=== PATIENT | male | born 1950 | race Caucasian/White ===

== ENCOUNTER → 2016-12-12 | Outpatient (REF) | payer OTHER | LOC: M SFHCPLAZ 12:51 | PROVIDERS: ATTEND Family Medicine | DX: E55.9 Vitamin D deficiency, unspecified (principal) ==

== ENCOUNTER → 2017-05-18 | Outpatient (CLI) | payer OTHER ==
[2017-05-18 13:47] LABS: ALBUMIN 3.8 GM/DL (3.2-5.2); ALBUMIN/GLOBULIN RATIO 1.27 (1.00-1.93); ALKALINE PHOSPHATASE 57 U/L (45-117); ALT/SGPT 23 U/L (12-78); ANION GAP 6 MEQ/L (8-16); AST/SGOT 15 U/L (15-37); BILIRUBIN,TOTAL 0.7 MG/DL (0.2-1.0); BLOOD UREA NITROGEN 13 MG/DL (7-18); CARBON DIOXIDE LEVEL 29 MEQ/L (21-32); CHLORIDE LEVEL 102 MEQ/L (98-107); CHOLESTEROL LEVEL 175 MG/DL (<200); CREATININE FOR GFR 0.95 MG/DL (0.70-1.30); GLOMERULAR FILTRATION RATE > 60.0 (>49); GLUCOSE, FASTING 94 MG/DL (80-110); POTASSIUM SERUM 4.4 MEQ/L (3.5-5.1); SODIUM LEVEL 137 MEQ/L (136-145); TOTAL PROTEIN 6.8 GM/DL (6.4-8.2); TRIGLYCERIDES LEVEL 156 MG/DL (<150)
== END ==
LOC: M LAB 11:37
PROVIDERS: ATTEND Family Medicine
DX: E55.9 Vitamin D deficiency, unspecified (principal); E78.4 Other hyperlipidemia; F32.89 Other specified depressive episodes

== ENCOUNTER → 2017-06-03 | Outpatient (CLI) | payer MEDICARE, MEDICAID ==
--- NOTE | 2017-06-03 15:29 | REP ---
CAROTID ULTRASOUND: Real-time sonographic evaluation and duplex Doppler interrogation of the extracranial carotid vasculature performed. There is moderate partially calcified plaque seen in both carotid bulbs extending into the internal carotid arteries bilaterally. There is elevated peak systolic velocity in the right internal carotid artery. The findings are compatible with stenosis of the right internal carotid artery, 60 to 79%. Peak systolic velocity of the left internal carotid artery is upper limits of normal with luminal narrowing in the range less than 50%. Please note that the plaques are very irregular and likely ulcerated on the right side. There is normal direction of flow in both vertebral arteries. RIGHT LEFT PSV ICA 145 cm/s 124 cm/s EDV ICA 21 cm/s 26 cm/s PSV CCA 123 cm/s 119 cm/s PSV ECA 124 cm/s 114 cm/s ICA/CCA ratio 1.2 1.0 IMPRESSION: Moderate partially calcified plaque in both carotid bulbs and internal carotid arteries. The plaques appear ulcerative on the right. There is stenosis of the right internal carotid artery 60 to 79%. Luminal narrowing left ICA, less than 50%. Signed by Rogelio Griffin MD 06/04/2017 01:25 P
== END ==
LOC: M RAD 11:47
PROVIDERS: ATTEND Family Medicine
DX: R09.89 Other specified symptoms and signs involving the circulatory and respiratory systems (principal)

== ENCOUNTER → 2017-07-15 | Outpatient (CLI) | payer MEDICARE, MEDICAID ==
[2017-07-15 12:34] LABS: ANION GAP 2 MEQ/L (8-16); BLOOD UREA NITROGEN 10 MG/DL (7-18); CARBON DIOXIDE LEVEL 35 MEQ/L (21-32); CHLORIDE LEVEL 102 MEQ/L (98-107); CREATININE FOR GFR 0.88 MG/DL (0.70-1.30); GLOMERULAR FILTRATION RATE > 60.0 (>49); GLUCOSE, FASTING 89 MG/DL (80-110); POTASSIUM SERUM 4.2 MEQ/L (3.5-5.1); SODIUM LEVEL 139 MEQ/L (136-145)
== END ==
LOC: M LAB 11:23
PROVIDERS: ATTEND Surgery Vascular Surgery
DX: I65.21 Occlusion and stenosis of right carotid artery (principal)

== ENCOUNTER → 2017-07-20 | Outpatient (CLI) | payer MEDICARE, OTHER, MEDICAID ==
[~2017-07-20] MED LIST: ISOVUE-370 76% 100ML VIAL (Q9967) As Ordered ONE
--- NOTE | 2017-07-21 06:27 | REP ---
CT ANGIO HEAD: HISTORY: Carotid stenosis. CONTRAST: Isovue 370, 100 mL. There is no aneurysm or arteriovenous malformation. Calcified atherosclerotic plaques are present in the vertical petrous and cavernous internal carotid arteries. These produce at least mild stenosis. Major intracranial vessels are patent. The vertebral arteries are equal in size. IMPRESSION: 1. There is no aneurysm or arteriovenous malformation. 2. Atherosclerotic disease as described above. Signed by Chaitanya Wilkins MD 07/21/2017 08:49 A
--- NOTE | 2017-07-21 06:31 | REP ---
CT ANGIO NECK: HISTORY: Carotid stenosis. CONTRAST: Isovue 370, 100 mL. A noncalcified atherosclerotic plaque is present at the origin of the right internal carotid artery. There is moderate stenosis of 40% of the right internal carotid artery at its origin. A calcified atherosclerotic plaque is present in the proximal right internal carotid artery 12 mm from its origin. There is moderate stenosis of 40% of the right internal carotid artery at this level. The origin of the right external carotid artery is normal. The distal left common carotid artery and origins of the left external and internal carotid arteries are normal. The vertebral arteries are equal in size and patent. The left vertebral artery arises from the aortic arch. Calcified atherosclerotic plaques are present at the origins of the left vertebral and left subclavian arteries. There is no significant stenosis. A calcified atherosclerotic plaque is present at the origin of the right subclavian artery. This produces at least mild stenosis. Scarring is present in the lung apices. Degenerative change is present in the cervical spine. IMPRESSION: 1. Moderate stenosis of 40% of the right internal carotid artery at its origin. There is moderate stenosis of 40% of the right internal carotid artery 12 mm from its origin. 2. Normal left carotid artery bifurcation. Signed by Chaitanay Wilkins MD 07/21/2017 08:49 A
== END ==
LOC: M RAD 17:53
PROVIDERS: ATTEND Surgery Vascular Surgery
DX: I65.21 Occlusion and stenosis of right carotid artery (principal)
CPT/HCPCS: 70496; 70498; Q9967

== ENCOUNTER 2017-07-23 10:45 | Outpatient (RCR) | payer MEDICAID, MEDICARE, OTHER | END 2017-07-25 | LOC: M PT 10:45 | PROVIDERS: ATTEND Family Medicine | DX: Z51.89 Encounter for other specified aftercare (principal); M54.5 Low back pain ==

== ENCOUNTER 2017-07-29 10:44 | Outpatient (RCR) | payer OTHER | END 2017-08-25 | LOC: M PT 10:44 | PROVIDERS: ATTEND Family Medicine | DX: Z51.89 Encounter for other specified aftercare (principal); M54.5 Low back pain ==

== ENCOUNTER 2018-01-24 11:25 | Emergency (ER) | payer MEDICARE, MEDICAID, OTHER | END 2018-01-24 13:53 | disposition home or self-care (01) | LOC: M ED 11:25 | DX: S20.219A Contusion of unspecified front wall of thorax, initial encounter (principal); W19.XXXA Unspecified fall, initial encounter; Y92.092 Bedroom in other non-institutional residence as the place of occurrence of the external cause; J45.909 Unspecified asthma, uncomplicated; E78.00 Pure hypercholesterolemia, unspecified; G47.52 REM sleep behavior disorder; Z79.899 Other long term (current) drug therapy; Z79.02 Long term (current) use of antithrombotics/antiplatelets; Z79.82 Long term (current) use of aspirin; Z88.0 Allergy status to penicillin; Z87.891 Personal history of nicotine dependence | CPT/HCPCS: 71101 ==

== ENCOUNTER → 2018-04-05 | Outpatient (CLI) | payer MEDICARE, MEDICAID | LOC: M RAD 11:40 | DX: I65.23 Occlusion and stenosis of bilateral carotid arteries (principal) | CPT/HCPCS: 93880 ==

== ENCOUNTER → 2018-05-06 | Outpatient (CLI) | payer MEDICARE, MEDICAID | LOC: M RAD 07:57 | DX: Z13.6 Encounter for screening for cardiovascular disorders (principal); I70.0 Atherosclerosis of aorta | CPT/HCPCS: 76775 ==

== ENCOUNTER → 2018-09-29 | Outpatient (CLI) | payer MEDICARE, MEDICAID ==
[2018-09-29 11:06] LABS: ALBUMIN 4.1 GM/DL (3.2-5.2); ALBUMIN/GLOBULIN RATIO 1.24 (1.00-1.93); ALKALINE PHOSPHATASE 66 U/L (45-117); ALT/SGPT 34 U/L (12-78); ANION GAP 4 MEQ/L (8-16); AST/SGOT 25 U/L (7-37); BILIRUBIN,TOTAL 0.5 MG/DL (0.2-1.0); BLOOD UREA NITROGEN 11 MG/DL (7-18); CALCIUM LEVEL 8.9 MG/DL (8.8-10.2); CARBON DIOXIDE LEVEL 31 MEQ/L (21-32); CHLORIDE LEVEL 105 MEQ/L (98-107); CHOLESTEROL LEVEL 202 MG/DL (<200); CHOLESTEROL RISK RATIO 4.208 (<5); CREATININE FOR GFR 0.91 MG/DL (0.70-1.30); GLOMERULAR FILTRATION RATE > 60.0 (>49); GLUCOSE, FASTING 93 MG/DL (70-100); HDL CHOLESTEROL 48 MG/DL (>40); LDL CHOLESTEROL 130 MG/DL (<100); NON-HDL-C 154 MG/DL; POTASSIUM SERUM 4.4 MEQ/L (3.5-5.1); SODIUM LEVEL 140 MEQ/L (136-145); TOTAL PROTEIN 7.4 GM/DL (6.4-8.2); TRIGLYCERIDES LEVEL 122 MG/DL (<150)
== END ==
LOC: M LAB 10:07
DX: I65.21 Occlusion and stenosis of right carotid artery (principal); E78.49 Other hyperlipidemia
CPT/HCPCS: 80053